=== PATIENT | female | born 1955 | race Caucasian/White ===

== ENCOUNTER 2024-12-20 16:17 | Emergency (ER) | payer MEDICARE, SELFPAY ==
[2024-12-20 16:18] VITALS: BP 121/74
[2024-12-20 16:40] LABS: Hematocrit 40.1 % (37.0-47.0); Hemoglobin 13.2 g/dL (12.0-16.0); Mean Corp Hgb Conc. 32.9 g/dL (33.0-37.0); Mean Corpuscular Volume 83.9 fL (81.0-99.0); Nucleated Red Blood Cells % 0 %; Platelet Count 310 10^3/uL (130-400); Red Cell Dist. Width 13.5 % (11.5-14.5)
[2024-12-20 16:52] LABS: ALT (SGPT) 16 U/L (0-35); AST (SGOT) 19 U/L (14-36); Albumin 4.6 g/dl (3.5-5.0); Alkaline Phosphatase 81 U/L (38-126); Blood Urea Nitrogen 15 mg/dl (7-17); Calcium 10.0 mg/dl (8.4-10.2); Carbon Dioxide 26 mmol/L (22-30); Chloride 109 mmol/L (98-107); Glucose 106 mg/dl (70-99); Lipase 91 U/L (23-300); Potassium 4.5 mmol/L (3.5-5.1); Sodium 141 mmol/L (135-145); Total Protein 7.5 g/dl (6.3-8.2); eGFR > 60.00
--- NOTE | 2024-12-20 17:35 | ED.GENMED ---
History of Present Illness
General
Chief Complaint: Abdominal Pain
Source: patient
Exam Limitations: none
Time Seen by Provider: 12/20/24 17:21
History of Present Illness
History of Present Illness:
69yoF with a remote history of uterine cancer s/p total hysterectomy and diverticulitis presenting for evaluation of abdominal pain. Patient has been feeling constipated for the past few days. She reports feeling the urge to have a bowel movement
but is unable to go. She developed pain in her right lower quadrant this morning after eating a protein drink. The pain is described as dull and sharp but also a 'twisting.' Pain has been gradually spreading throughout the day. She has a history
of diverticulitis with abscess in the past and this feels similar although is not left-sided. She denies any fevers, chills, vomiting, dysuria.
Phy Exam
General Physical Exam
General Presentation: well appearing and no apparent distress
General age: appears stated age
General Skin: warm and dry
General Habitus: normal
General Mental: alert
ENT Exam
ENT Exam: normocephalic
Pulmonary Exam
Pulmonary Exam: no respiratory distress
Gastrointestinal Exam
Gastrointestinal Exam: normal bowel sounds, soft, non distended and other (Mild tenderness in RLQ. Abdomen soft, non-distended. No rebound or guarding.)
Neurological Exam
Neurological Exam: alert
[place] Coma Scale
Eye Opening: Spontaneous
Verbal Response: Oriented
Motor Response: Obeys Commands
GCS Total Score: 15
Skin Exam
Skin Exam: normal color and warm/dry
Psychiatric Exam
Psychiatric Exam: normal mood/affect
Course
Orders/Labs/Results
Orders:
Orders
12/20/24 16:29
Complete Blood Count/With Diff Urgent
Comprehensive Metabolic Panel Urgent
Lipase Urgent
12/20/24 17:34
CT Abd/pelvis W Iv Cont Urgent
Comment:
Reason For Exam: RLQ pain
12/20/24 19:09
Urinalysis Reflex To Culture Urgent
Date Specimen was Collected: 12/20/24
Time Specimen was Collected: 17:36
Urine Microscopic Reflex Cult Urgent
Abnormal Lab Results
12/20/24 12/20/24
16:29 19:09
WBC 12.2 H 10^3/uL
(4.8-10.8)
MCHC 32.9 L g/dL
(33.0-37.0)
Absolute Neuts (auto) 10.0 H 10^3/uL
(1.4-6.5)
Neutrophils % 81.8 H %
(42.2-75.2)
Lymphocytes % 12.0 L %
(20.5-51.1)
Chloride 109 H mmol/L
(98-107)
Glucose 106 H mg/dl
(70-99)
Ur Occult Blood Reflex 1+ A
(Negative)
12/20/24 16:29
12/20/24 16:29
Vital Signs
Initial and Last Documented VS:
Initial Vital Signs
Temp Pulse Resp BP Pulse Ox
98.6 F 98 16 121/74 98
12/20/24 16:18 12/20/24 16:18 12/20/24 16:18 12/20/24 16:18 12/20/24 16:18
Last Documented Vital Signs
Temp Pulse Resp BP Pulse Ox
98.6 F 69 16 122/56 99
12/20/24 18:27 12/20/24 19:30 12/20/24 19:30 12/20/24 19:00 12/20/24 19:30
MDM/Problems Addressed
Differential Diagnosis Includes:
69yoF here with RLQ pain that began this morning. Also c/o feeling the urge to have a BM. VSS. She is well appearing in no distress. No signs of peritonitis on abdominal exam. Differential diagnosis includes but is not limited to: Appendicitis,
colitis, kidney stone, musculoskeletal, constipation, nonspecific abdominal pain
Initial ED plan: Labs obtained in triage. Mild leukocytosis noted with a white count of 12.2. Remainder of labs unremarkable. Will check CT abdomen and UA. She declines analgesics.
*Pulse Oximetry
SaO2: 98
Oxygen Mode of Delivery: Room air
Patient hypoxic: no (99%)
*Critical Care Note
Total Time (30-74mins, 75-104mins- exclusive of procedures): Not Applicable
Update Note
Update Note:
Appendix visualized on CT and is normal. CT findings compatible with mild mesenteric panniculitis which is mainly in the central and left upper abdomen and does not correlate with her current symptoms. Discussed results of CT at length with
patient and . No indication for hospitalization. Supportive care reviewed including MiraLAX as needed for constipation. She was advised to follow-up with PCP and GI. ED return precautions discussed and patient discharged in stable
condition.
ED Attending Note
-
Portions of this chart may have been created with voice recognition software.� Occasional wrong word or��sound alike� substitutions may have occurred due to the inherent limitations of voice recognition software.
Discharge Plan
Departure
Patient Disposition: Home (Routine Discharge)
Date of Disposition: 12/20/24
Time of Disposition: 19:33
Patient with high blood pressure during this ER visit?: No
Discharge Problem:
Acute right lower quadrant pain
Instructions: Abdominal Pain
Referrals:
Francia Andrade DO [Active, Gastroenterology]
Leonides Calix MD [Primary Care Provider, Internal Medicine]
Activity Restrictions/Additional Instructions:
Take ibuprofen as needed for pain and apply heat to affected area. Take MiraLAX as needed for constipation.
Please follow-up with your family doctor and gastroenterology. Return to the ER with any new or worsening symptoms.
Interventions
Interventions:
*Risk Screen - Suicide Last Done: 12/20/24 16:18
*General Assessment Last Done: 12/20/24 16:18
*Neglect/Abuse Screening Last Done: 12/20/24 18:27
*ED- Fall Risk Assessment Last Done: 12/20/24 18:27
*ED COVID-19 Vaccine History Last Done: 12/20/24 18:27
*Nursing Disposition Last Done: 12/20/24 19:48
OS-Qgcsxd-Jczyminayz Assessment Last Done: 12/20/24 18:27
Discharge Date and Time
Discharge Date/Time: 12/20/24 19:49
Print Language: ARMENIAN
[2024-12-20 18:23] VITALS: BP 138/107
[2024-12-20 18:27] VITALS: BP 138/107; BMI 25.1
[2024-12-20 19:00] VITALS: BP 122/56
[2024-12-20 19:19] LABS: Urine Character Clear (Clear)
[2024-12-20 19:27] LABS: Urine Red Blood Cell None Seen /HPF (0-2); Urine White Cell None Seen /HPF (0-5)
== END 2024-12-20 19:49 | disposition home or self-care (01) ==
LOC: EMR 16:17
PROVIDERS: Physician Assistant; EMERGENCY PHYSICIAN Emergency Medicine; PRIMARYCARE PHYSICIAN Internal Medicine
DX: R10.31 Right lower quadrant pain (principal); Z85.42 Personal history of malignant neoplasm of other parts of uterus; Z90.710 Acquired absence of both cervix and uterus
CPT/HCPCS: 99284; 74177; 80053; 81003; 81015; 83690; 85025; Q9967

== ENCOUNTER 2025-01-05 08:37 | Emergency (ER) | payer MEDICARE, SELFPAY ==
[2025-01-05 08:55] VITALS: BP 127/80
[2025-01-05 09:23] LABS: Hematocrit 38.9 % (37.0-47.0); Hemoglobin 12.9 g/dL (12.0-16.0); Mean Corp Hgb Conc. 33.2 g/dL (33.0-37.0); Mean Corpuscular Volume 84.2 fL (81.0-99.0); Nucleated Red Blood Cells % 0 %; Platelet Count 294 10^3/uL (130-400); Red Cell Dist. Width 13.2 % (11.5-14.5)
[2025-01-05 09:46] LABS: ALT (SGPT) 14 U/L (0-35); AST (SGOT) 21 U/L (14-36); Albumin 4.4 g/dl (3.5-5.0); Alkaline Phosphatase 81 U/L (38-126); Blood Urea Nitrogen 12 mg/dl (7-17); Calcium 9.6 mg/dl (8.4-10.2); Carbon Dioxide 25 mmol/L (22-30); Chloride 106 mmol/L (98-107); Glucose 106 mg/dl (70-99); Potassium 4.4 mmol/L (3.5-5.1); Sodium 138 mmol/L (135-145); Total Protein 7.3 g/dl (6.3-8.2); eGFR > 60.00
[2025-01-05 10:32] VITALS: BMI 27.4
[2025-01-05] MEDS: OMNIPAQUE 50 ML PO (10:42)
--- NOTE | 2025-01-05 10:45 | ED.GENMED ---
History of Present Illness
General
Chief Complaint: Abdominal Pain
Source: patient and records
Exam Limitations: none
Time Seen by Provider: 01/05/25 10:18
History of Present Illness
History of Present Illness:
69yoF with a history of diverticulosis, GERD, and remote history of uterine cancer s/p hysterectomy presenting for evaluation of abdominal pain. Symptoms began a few days ago. She reports a constant dull pain in her LLQ and feeling the constant
urge to rub her abdomen. She also is having constipation and is only able to defecate small amounts at a time. Symptoms feel identical to when she's had diverticulitis with an abscess several years ago. She is otherwise asymptomatic and denies
any fevers, chills, vomiting, dysuria, rectal bleeding. Of note, patient was seen in the ED on 12/20/[address] abdomen with IV contrast showed mild mesenteric panniculitis but was otherwise unremarkable.
Phy Exam
General Physical Exam
General Presentation: well appearing and no apparent distress
General Skin: warm and dry
General Habitus: normal
General Mental: alert
ENT Exam
ENT Exam: normocephalic
Pulmonary Exam
Pulmonary Exam: no respiratory distress
Gastrointestinal Exam
Gastrointestinal Exam: soft, non distended and other (+Mild tenderness in LUQ, suprapubic, and LLQ regions. Abdomen soft, non-distended. No rebound or guarding.)
Neurological Exam
Neurological Exam: alert
[place] Coma Scale
Eye Opening: Spontaneous
Verbal Response: Oriented
Motor Response: Obeys Commands
GCS Total Score: 15
Skin Exam
Skin Exam: normal color and warm/dry
Psychiatric Exam
Psychiatric Exam: normal mood/affect
Course
Orders/Labs/Results
Orders:
Orders
01/05/25 09:05
CMP [Comprehensive Metabolic Panel] Urgent
Complete Blood Count/With Diff Urgent
Lactic Acid Urgent
Lipase Urgent
Comment: ADD ON
01/05/25 10:29
Urinalysis Reflex To Culture Urgent
Date Specimen was Collected: 01/05/25
Time Specimen was Collected: 10:27
01/05/25 10:40
Iohexol [Omnipaque] 50 ml .ROUTE .STK-MED ONE
01/05/25 10:42
Iohexol [Omnipaque] See Protocol PO NOW STA
01/05/25 10:44
CT Abd/pel W Iv And Oral Contr Urgent
Comment:
Reason For Exam: LLQ pain
01/05/25 10:49
Add On- LAB Urgent
Tests Added?: lipase
Abnormal Lab Results
01/05/25 01/05/25
09:05 10:29
Neutrophils % 76.3 H %
(42.2-75.2)
Lymphocytes % 15.0 L %
(20.5-51.1)
Glucose 106 H mg/dl
(70-99)
Urine Ketones 2+ A
(Negative)
01/05/25 09:05
01/05/25 09:05
Vital Signs
Initial and Last Documented VS:
Initial Vital Signs
Temp Pulse Resp BP Pulse Ox
98.4 F 98 16 127/80 100
01/05/25 08:55 01/05/25 08:55 01/05/25 08:55 01/05/25 08:55 01/05/25 08:55
Last Documented Vital Signs
Temp Pulse Resp BP Pulse Ox
98.4 F 69 15 124/64 98
01/05/25 08:55 01/05/25 14:30 01/05/25 14:30 01/05/25 14:00 01/05/25 14:30
MDM/Problems Addressed
Differential Diagnosis Includes:
69yoF here with dull LLQ pain x several days. Associated with constipation. Hx of diverticulitis and this feels the same. VSS. She is well appearing in no distress. No signs of peritonitis on abdominal exam. Differential diagnosis includes but is
not limited to: diverticulitis, constipation, colitis, musculoskeletal, nonspecific abdominal pain
Initial ED plan: Workup initiated in triage. White count and lactate are normal. Remainder of labs unremarkable. Patient requesting PO contrast as this is how her diverticulitis was diagnosed in the past. CT abdomen with IV/PO contrast ordered.
*Pulse Oximetry
SaO2: 100
Oxygen Mode of Delivery: Room air
Patient hypoxic: no (100%)
*Critical Care Note
Total Time (30-74mins, 75-104mins- exclusive of procedures): Not Applicable
Update Note
Update Note:
CT again shows mild mesenteric panniculitis which appears unchanged from prior imaging. Unclear if this is related to her current symptoms. No other acute findings noted on imaging. Specifically, there is no evidence of diverticulitis. No
indication for hospitalization. Patient was advised to take MiraLAX as needed for her constipation. She has not followed up with her PCP or GI since her last ED visit and she was encouraged to schedule this. Patient has not had a colonoscopy in
about 10 years so is due for this. ED return precautions reviewed. Patient discharged in stable condition.
ED Attending Note
-
Portions of this chart may have been created with voice recognition software.� Occasional wrong word or��sound alike� substitutions may have occurred due to the inherent limitations of voice recognition software.
Discharge Plan
Departure
Patient Disposition: Home (Routine Discharge)
Date of Disposition: 01/05/25
Time of Disposition: 14:33
Patient with high blood pressure during this ER visit?: No
Discharge Problem:
Left lower quadrant abdominal pain, Mesenteric panniculitis
Instructions: Abdominal Pain
Referrals:
Adelina Priest MD [Active, Gastroenterology]
Leonides Calix MD [Family Provider, Internal Medicine]
Activity Restrictions/Additional Instructions:
Take MiraLAX 1-2 times a day until bowel movements regulate.
Please call tomorrow to schedule a follow-up with your family doctor and gastroenterology. Return to the ER with any worsening symptoms including fevers or severe pain.
Interventions
Interventions:
*Risk Screen - Suicide Last Done: 01/05/25 08:55
*General Assessment Last Done: 01/05/25 10:32
*Neglect/Abuse Screening Last Done: 01/05/25 08:58
*ED- Fall Risk Assessment Last Done: 01/05/25 10:32
*ED COVID-19 Vaccine History Last Done: 01/05/25 10:32
*Nursing Disposition Last Done: 01/05/25 14:43
LN-Jpexsz-Ymieujjezf Assessment Last Done: 01/05/25 10:32
Discharge Date and Time
Discharge Date/Time: 01/05/25 15:06
Print Language: [place]
[2025-01-05 10:59] LABS: Urine Character Clear (Clear)
[2025-01-05 11:00] LABS: Lipase 68 U/L (23-300)
[2025-01-05 12:22] VITALS: BP 112/59
[2025-01-05 13:26] VITALS: BP 118/57
[2025-01-05 14:00] VITALS: BP 124/64
== END 2025-01-05 15:06 | disposition home or self-care (01) ==
LOC: EMR 08:37
PROVIDERS: Physician Assistant; Student in an Organized Health Care Education/Training Program; EMERGENCY PHYSICIAN Emergency Medicine; FAMILY PHYSICIAN Internal Medicine
DX: K65.4 Sclerosing mesenteritis (principal); K59.00 Constipation, unspecified; Z85.42 Personal history of malignant neoplasm of other parts of uterus; Z90.710 Acquired absence of both cervix and uterus
CPT/HCPCS: 99284; 74177; 80053; 81003; 83605; 83690; 85025; Q9967